=== PATIENT | female | born 1995 | race Caucasian/White ===

== ENCOUNTER 2017-09-26 04:34 | Emergency (ER) | payer OTHER ==
[~2017-09-26] VITALS: Ht 157.5 cm; Wt 54.4 kg
[2017-09-26 05:00] LABS: HEMATOCRIT 43.7 % (36.0-46.0); MCH 30.6 PG (29.0-34.0); MCHC 34.6 G/DL (30.0-36.0); MCV 88.5 FL (83-99); MEAN PLAT.VOLUME 9.9 uM^3 (9.5-12.4); PLATELET COUNT 254 K/uL (156-360); RBC DIS.WIDTH-CV 12.2 % (11.8-14.6); RBC DIS.WIDTH-SD 39.8 % (39-53); RED BLOOD COUNT 4.94 M/uL (3.80-5.20); WHITE BLOOD COUNT 16.8 K/uL (4.1-10.2)
[2017-09-26 05:08] LABS: CHLORIDE 103 mEq/L (99-109); POTASSIUM 4.4 mEq/L (3.7-5.4); SODIUM 139 mEq/L (136-147)
[2017-09-26 05:11] LABS: GLUCOSE 129 mg/dL (70-99)
[2017-09-26 05:12] LABS: ANION GAP 12 MEQ/L (2-14)
[2017-09-26 05:13] LABS: TOTAL BILIRUBIN 0.8 mg/dL (0.0-1.0)
[2017-09-26 05:14] LABS: ALKALINE PHOSPHATASE 83 IU/L (3-129); GFR ESTIMATE (CALCULATED) > 59 mL/min/
[2017-09-26 05:15] LABS: UREA NITROGEN (BUN) 12 mg/dL (9-23)
[2017-09-26 05:18] LABS: LIPASE 7 U/L (1.0-51.0)
[2017-09-26 05:24] LABS: QUANTITATIVE HCG < 4.0 MIU/ML
[2017-09-26] MEDS ORDERED: PEPCID20 MG PO (05:58)
[2017-09-26] MEDS ORDERED: ZOFRAN ODT4 MG PO (05:58)
[2017-09-26 06:34] VITALS: BP 124/64
== END 2017-09-26 06:36 | disposition home or self-care (01) ==
LOC: EME 04:34
DX: R11.2 Nausea with vomiting, unspecified (principal); R19.7 Diarrhea, unspecified; R10.13 Epigastric pain
CPT/HCPCS: 80053; 81003; 83690; 84702; 85027; 99281; 99284